=== PATIENT | female | born 1930 | race Two or more races ===

== ENCOUNTER 2017-11-01 09:58 | Day surgery (SDC) | payer OTHER ==
[~2017-11-01 09:58] MED LIST: ASA81 MG PO; LOTREL 5-20 MG1 CAP PO
[2017-11-01] MEDS ORDERED: ALEVE220 M1 PO (15:21)
[2017-11-01] MEDS ORDERED: CEFADROXIL500 MG PO (15:21)
[2017-11-01] MEDS ORDERED: PERCOCET 5-3251 EACH PO (15:21)
== END 2017-11-01 18:20 | disposition home or self-care (01) ==
LOC: CIR.AMB 09:58
DX: S52.571A Other intraarticular fracture of lower end of right radius, initial encounter for closed fracture (principal); M80.00XA Age-related osteoporosis with current pathological fracture, unspecified site, initial encounter for fracture
CPT/HCPCS: 25609; 25101; 20902; C1776